=== PATIENT | female | born 1990 | race Two or more races ===

== ENCOUNTER 2017-01-28 07:33 | Emergency (ER) | payer BC, OTHER ==
[~2017-01-28] VITALS: Ht 167.6 cm; Wt 110.0 kg
[2017-01-28 07:34] VITALS: BP 137/87
[2017-01-28] MEDS ORDERED: KETOROLAC 30 MG/1 ML ONE (08:00)
[2017-01-28] MEDS ORDERED: KETOROLAC 30 MG/1 ML IM ONE (08:00)
== END 2017-01-28 10:05 | disposition home or self-care (01) ==
LOC: ED 08:13
DX: S73.111A Iliofemoral ligament sprain of right hip, initial encounter (principal); X50.9XXA Other and unspecified overexertion or strenuous movements or postures, initial encounter; Y93.89 Activity, other specified; Y92.098 Other place in other non-institutional residence as the place of occurrence of the external cause; Y99.8 Other external cause status
CPT/HCPCS: 73502; 96372; 99284; J1885